=== PATIENT | male | born 1990 | race Caucasian/White ===

== ENCOUNTER 2018-12-02 09:56 | Emergency (ER) | payer SELFPAY ==
[~2018-12-02] VITALS: Ht 182.9 cm; Wt 123.9 kg
[2018-12-02 10:02] VITALS: BP 136/81
[2018-12-02] MEDS ORDERED: LIDOCAINE-MPF 1%, 5ML INFIL ONE (10:30)
[2018-12-02] MEDS ORDERED: LIDOCAINE-MPF 1%, 2ML ONE (10:39)
--- NOTE | 2018-12-02 11:36 | NUR ---
Patient/Caregiver given discharge instructions and they have confirmed that they understand the instructions. Patient ambulatory with steady gait.
== END 2018-12-02 13:48 | disposition home or self-care (01) ==
LOC: ED 11:42
DX: L02.11 Cutaneous abscess of neck (principal)
CPT/HCPCS: 10060; 99283

== ENCOUNTER 2018-12-05 09:46 | Emergency (ER) | payer SELFPAY ==
[~2018-12-05] VITALS: Ht 182.9 cm; Wt 126.8 kg
[2018-12-05 09:58] VITALS: BP 124/78
--- NOTE | 2018-12-05 10:03 | NUR ---
YOLIS ADAMSON AT BEDSIDE FOR PIT AND ABSCESS RECHECK.
== END 2018-12-05 10:12 | disposition home or self-care (01) ==
LOC: ED 10:05
DX: L02.11 Cutaneous abscess of neck (principal)
CPT/HCPCS: 99281